=== PATIENT | male | born 1965 | race Caucasian/White ===

== ENCOUNTER 2017-01-14 10:28 | Inpatient (IN) ==
--- NOTE | 2017-01-13 21:19 | Discharge Summary ---
<Leyda Monsivais - Last Filed: 01/13/17 21:17> Date of Encounter: 01/13/17 - Discharge Diagnosis (1) Rotator cuff tear arthropathy of right shoulder Priority: Primary Status: Acute - Discharge Medications Home Medications: OxyCODONE Immed Rel [Roxicodone 5 MG] 5 - 10 mg PO Q6HR PRN #40 tablet 01/13/17 [Rx] Allergies/Adverse Reactions: Allergies tramadol Allergy (Verified 01/14/17 10:45) Itching Primary care physician: PCP NO - Patient Status Disposition: Home, Self-Care Condition: Good - Discharge Instructions Follow Up With: Leyda Monsivais, PAC [Physician Channel Process Supervisor] - 01/25/17 10:00 am NO,PCP [Primary Care Provider] - Additional Instructions: Discharge Instructions: Total Shoulder Please call [facility] ([phone]), your Primary Care Physician, or report to the Emergency Room if you have any of the following symptoms: Nausea, vomiting, fever greater that 101.5, swelling, chest pain, shortness of breath, increased pain/redness/drainage/odor for your incision site, numbness/ tingling, or any other concerning symptoms. ACTIVITY: Always keep your arm in the sling. Do not raise your arm away from your body. Do not use your arm to help with getting in or out of bed. No weight bearing permitted. Only perform those exercises given to you by your therapist. MEDICATIONS: Upon discharge resume your home medications. Take all the medications as prescribed. Take a stool softener if taking narcotic pain medications. Stool softeners are only effective if you drink enough fluids. Drink 6-8 glass of water or fluids a day, unless this is not allowed for another health problem. Despite using stool softeners, if you haven't had a bowel movement in 3 days, please switch to a gentle laxative. Gentle laxatives are sold over the counter. You should have a bowel movement within 24 hours, if not call the office. You will be discharged from the hospital with a prescription for pain medication. You are encouraged to decrease the use of narcotic pain medication as tolerated. Should you require a refill, please call the office. [facility] prescribes narcotic pain medication for only 4-6 weeks after surgery. If you require pain medication beyond this time period, you may be referred to your Primary Care Physician or to the Pain Clinic for further evaluation. Plan ahead for refills on pain medication as many narcotics either need to be picked up at the office or mailed. It is best to call 48-72 hours in advance of needing a prescription refill so you don't run out of medication. To help control the post-operative pain, you may take NSAIDs (Aleve,Advil, Motrin, Ibuprofen, Naprosyn) or Tylenol as prescribed on the bottle in addition to the pain medication. WOUND CARE: Leave the dressing on for 7-10 days. You may change the dressing if it becomes saturated greater than 50%. Do not get the dressing wet at anytime. Wash your hands with antibacterial soap, rinse and dry prior to any wound care. If you have jai the visiting nurse or rehab facility can remove the stapes 10-14 days after surgery and place steri-strips across the wound. Leave the steri-strips in place until they fall off on their own. You may let water from the shower run on top of the steri-strips. If you do not have a visiting nurse or rehab facility, you will need to return to the office at 10-14 days for the jai to be removed. If you have itching or redness around the dressing call the office. FOLLOW-UP: Please follow up with your surgeon in the orthopedic clinic, as scheduled - Hospital Course Hospital course: Mr. Mack is a 51 year old male - Time Spent with Patient Total time spent providing and/or coordinating discharge services: <Rakesh Hardy - Last Filed: 01/14/17 17:42> Date of Encounter: 01/14/17 Time of Encounter: 17:41 - Discharge Diagnosis (1) Tobacco abuse Priority: Secondary Status: Chronic (2) Rotator cuff tear arthropathy of right shoulder Priority: Primary Status: Acute Primary care physician: PCP NO - Patient Status Functional capacity at discharge: independent ambulation Overall status at discharge: patient is progressing back to baseline - Hospital Course Hospital course: Mr. Mack is a 51 year old male The patient had an uneventful postoperative course. They received antibiotics and physical therapy and were discharged in stable condition. There will follow -up in the office in 2 weeks. - Time Spent with Patient Total time spent providing and/or coordinating discharge services:
[2017-01-14] MEDS ORDERED: Lidocaine -MPF 1% 2 ML VIAL ID ONE (10:45)
[2017-01-14] MEDS ORDERED: Ringers Solution, Lactated 1,000 ML IVC SCH ×2 (10:45→14:49)
[2017-01-14] MEDS ORDERED: CeFAZolin Pre 2,000 MG/100 ML 2,000 MG/100 ML BAG IVPB ONE (10:45)
[2017-01-14] MEDS ORDERED: Famotidine 20 MG/2 ML VIAL IVP ONE (10:46)
[2017-01-14] MEDS ORDERED: Albuterol 2.5 MG/3 ML NEBULIZER IH ONE (10:52)
[2017-01-14] MEDS ORDERED: Albuterol 2.5 MG/3 ML NEBULIZER ONE (10:53)
[2017-01-14] MEDS ORDERED: Gabapentin 300 MG CAPSULE PO ONE (10:54)
--- NOTE | 2017-01-14 11:15 | Anesthesia Evaluation PreOp ---
Date of Encounter: 01/14/17 Time of Encounter: 11:10 - Past History Planned Operation: Rt Total Shoulder Replacement Cardiac History: Denies any Significant Hx Pulmonary History: Smoker [employer] History: Denies Any Significant HX Other Medical History: Denies Any Significant HX Anesthesia History: No Prior Anesthetic Complications Alcohol Use: none Drug use: none Medications and Allergies OxyCODONE Immed Rel [Roxicodone 5 MG] 5 - 10 mg PO Q6HR PRN #40 tablet 01/13/17 [Rx] Allergies tramadol Allergy (Verified 01/14/17 10:45) Itching - Meds/Allergy Pre-op Review Medications Reviewed: Yes Allergies Reviewed: Yes Beta Blockers on Current Med List: No Anesthesia Exam O2 Sat Height 1.83 m Height 1.83 m Weight 88.904 kg Weight 88.904 kg O2 Sat by Pulse Oximetry 99 O2 Sat by Pulse Oximetry 99 Vital Signs Temp Pulse Resp BP Pulse Ox 97.8 F 77 18 123/80 99 01/14/17 11:04 01/14/17 11:04 01/14/17 11:04 01/14/17 11:04 01/14/17 11:04 Height: 6'0 Weight: 196 lbs NPO (# of Hours): MN Pain Scale: 0 - HEENT Pupil (Motor): Pupils equal, EOMI Mallampati: II Denture Type: Upper: Complete Oral Opening: Greater than 3 - [employer]ED [employer] LOC: Oriented, Confused [employer]ED [employer] Sensory: Normal: RUE, LUE, RLE, LLE, Face - Cardiac Rhythm: Regular Murmur: None JVD: No Carotid Bruit: No - Pulmonary Breath Sounds: bilateral Clear Respiratory Effort: Symmetrical Anesthesia Assess/Plan ASA Score: 2 Modified Allie Scale for Level of Consciousness: Cooperative, oriented, and tranquil Anesthetic Plan: General, Regional Monitoring Plan: Standard Monitors Recovery Plan: PACU (Discussed GA and RA, agrees to proceed)
--- NOTE | 2017-01-14 11:23 | History & Physical Report ---
Date of Encounter: 01/14/17 Time of Encounter: 11:23 24 Hour HP Update - Instructions Instructions: If the History and Physical is less than 30 days old and was completed prior to A.M. admission and or procedure and has NOT been updated on calendar day of procedure please complete this update prior to performing procedure. - Update Patient reports changes in Medical Condition: No Changes in examination, assessment, or condition: No Changes in Medication: No Preop tests/diagnostics Reviewed: Yes Surgery Remains Indicated: Yes Consent for Planned Operative Procedure(s) Verified: Yes - Pre-Operative Checklist Preoperative Checklist Indicated: No Prophylactic Antibiotic Ordered: Yes Is VTE Prophylaxis Indicated?: Yes
[2017-01-14] MEDS ORDERED: Dexamethasone 4 MG/ML VIAL ONE (11:48)
[2017-01-14] MEDS ORDERED: *HR* FentaNYL (PF) 100 MCG/2 ML VIAL ONE (11:48)
[2017-01-14] MEDS ORDERED: *HR* Midazolam HCl 2 MG/2 ML VIAL ONE (11:48)
[2017-01-14] MEDS ORDERED: Ondansetron 4 MG/2 ML VIAL ONE (11:48)
[2017-01-14] MEDS ORDERED: *HR* Propofol 200 MG/20 ML VIAL IVP ONE (11:48)
[2017-01-14] MEDS ORDERED: Lidocaine -MPF 2% 2 ML VIAL ONE (11:49)
[2017-01-14] MEDS ORDERED: Tetracaine/PF 20 MG/2 ML AMPUL ONE (12:17)
[2017-01-14] MEDS ORDERED: ROPIVACAINE HCL/PF 0.5% 30 ML VIAL ONE (12:17)
[2017-01-14] MEDS ORDERED: Bupivacaine/Clonidine Syringe 1 EACH SYRINGE ONE (12:18)
[2017-01-14] MEDS ORDERED: *HR* Meperidine 25 MG/ML SYRINGE IVP PRN (12:29)
[2017-01-14] MEDS ORDERED: Ondansetron 4 MG/2 ML VIAL IVP PRN ×2 (12:29→14:49)
[2017-01-14] MEDS ORDERED: Naloxone 0.4 MG/ML INJ IVP PRN ×2 (12:29→14:49)
--- NOTE | 2017-01-14 12:33 | Anesthesia Procedures ---
Date of Encounter: 01/14/17 Time of Encounter: 12:20 Procedures: Anesthesia - Nerve Block Procedure Date: 01/14/17 Time: 12:20 Allergies/Adv Reactions: Allergies Allergy/AdvReac Type Severity Reaction Status Date / Time tramadol Allergy Itching Verified 01/14/17 10:45 Pre-op Diagnosis: Right Rotator Cuff Arthropathy Surgical Procedure: Right Reverse Total Shoulder Replacement Checklist: Correct Patient Identifier, Correct procedure, History checked Correct side: Right Blood Thinner: No Monitor Applied: EKG, BP, Pulse Oximetry Supplemental Oxygen via Nasal Cannula (L/min): 2 Sedation: Versed (mg): 2 Sedation: Fentanyl (mcg): 100 Indication: Post Op Analgesia Pre-op Neuro Deficits: No Block Type: Supraclavicular, Other (SCP, ICB) Catheter placed: No Sterile Technique: Yes Ultrasound used: Yes Anatomy identified: Yes Visual spread of Local: Yes Blood on Needle Aspiration: No Smooth Injection of Local: Yes Pain with Injection of Local: No Prep: Chlorhexadine Needle: 22 x 50 mm Stimuplex Local: 0.25% Bupivicaine w/Clonidine 20 mcg/cc (5ml each SCP, ICB), Tetracaine ( 2mL), Ropivacaine (0.5% 30mL Supra) Volume (cc): 40 Number of Attempts: 1 Complications: None/effective block Vitals: VSS throughout. See nursing documentation. Comments: Verbal order Dr Hardy for post op pain management. Patient tolerated procedure well.
--- NOTE | 2017-01-14 13:33 | Orthopedic Operative Note ---
Date of procedure: 01/14/17 Pre-op diagnosis: Right shoulder cuff tear arthropathy Post-op diagnosis: same Procedure: Procedure: Right Total Shoulder Replacment Reverse, Estimated blood loss: 100 cc Hardware: Metal and polyethylene replacement: Arthrex large glenoid baseplate, 2 4.5 screws. 1 6.5 screw, 42+4 glenosphere, 10 humeral stem, poly insert 3 and 6 metal Exam Under anesthesia: Full motion and no instability Procedural Notes: Irreparable tear supraspinatus tendon Operative procedure: The patient was brought to the operating room and placed on the operating room table. After general anesthesia was administered the operative shoulder was examined. Findings were noted. The patient was placed in the modified beachchair position. All pressure points were padded appropriately. And the head was stabilized in the neutral position. The operative extremity was prepped and draped in the sterile surgical fashion. The patient received IV antibiotics prior to skin incision. A standard deltopectoral approach was made to the operative shoulder. Incision was made to the skin and subcutaneous tissue,hemo stasis was obtained with Bovie cautery. Using careful blunt dissection the cephalic vein was identified and mobilized medially. The deltopectoral interval was developed and the clavipectoral fascia was incised. The subscap was released off the lesser tuberosity and tagged with #2 FiberWire suture it was irreparable. The humerus was dislocated patient noted to have irreparable tear supraspinatus tendon, and the humeral cut was made along the anatomic neck. Anterior and posterior Bankart retractors were placed to expose the glenoid. The glenoid guide was seated and the centering hole was made. It was reamed with the appropriate reamer. The large baseplate was seated and secured with (2) 4.5 screws and one 6.5 screw. The baseplate was irrigated and dried and the 42+4 Glenosphere was seated and secured with the Mariano taper. The Mariano taper was tested and found to be secure the humerus was redislocated and prepared with the diaphyseal reamers, followed by a broaching process up to the appropriate size 10 in the patient's anatomic version. The metaphyseal reamer was then utilized. Trial reduction found the shoulder to be relocatable. Trial components were removed. The appropriate 10 stem was impacted in place in the patient's anatomic version. Trial reduction found the shoulder to be relocatable and stable with the 6 metal 3 Neida Trial component was removed and the real 6 metal 3 Neida was seated and secured the shoulder was reduced. The shoulder had excellent motion and excellent stability and no evidence of dislocation. The deep tissue was irrigated with pulse irrigation. The deltopectoral interval was closed with a running #1 PDS suture, subcutaneous tissue was irrigated and closed with 0 PDS suture, the skin was closed with Dermabond. The patient was placed in a sterile dressing, abduction brace and extubated. The patient was then transferred to the recovery room in stable condition. Anesthesia: RACHEL Surgeon: Rakesh Hardy Hand Picker: Leyda Monsivais Condition: stable Disposition: PACU
[2017-01-14] MEDS: *HR* HYDROmorphone (PF) 1 MG/ML SYRINGE IVP PRN ×2 (13:55→14:04)
[2017-01-14 14:17] LABS: Hematocrit 42.2 % (37.5-50.1); Hemoglobin 14.2 g/dL (12.9-16.9)
--- NOTE | 2017-01-14 14:19 | Anesthesia Evaluation Post Op ---
Date of Encounter: 01/14/17 Time of Encounter: 14:25 - Vital Signs Vital Signs: Vital Signs/O2 Sat/Glucose, Most Current Temp Pulse Resp BP Pulse Ox 01/14/17 14:07 76 16 120/80 95 01/14/17 13:57 77 22 133/97 97 01/14/17 13:47 98 F 81 22 126/90 99 01/14/17 12:39 81 12 122/75 95 01/14/17 12:17 78 16 126/83 98 01/14/17 11:04 97.8 F 77 18 123/80 99 - Lungs Lungs: Clear Ascult./Percussion - Airway Airway: Non-obstructed - Cardiovascular Regular Rate - Mental Status Mental Status: Alert & Oriented, Answers Appropriately - Pain Pain Scale: 4 - Nausea Vomiting Nausea Vomiting: Not Present - Hydration Hydration: Ice chips - Discharge PostOp Status: Transfer Patient to floor
[2017-01-14] MEDS ORDERED: Sennosides 8.6 MG TABLET PO PRN (14:49)
[2017-01-14] MEDS ORDERED: *HR* HYDROmorphone (PF) 1 MG/ML SYRINGE IVP PRN (14:49)
[2017-01-14] MEDS ORDERED: MOM Conc 10 ML UD.LIQ PO PRN (14:49)
[2017-01-14] MEDS ORDERED: *HR* OxyCODONE Immed Rel 5 MG TABLET PO PRN ×2 (14:49)
[2017-01-14] MEDS ORDERED: Temazepam 15 MG CAPSULE PO PRN (14:49)
[2017-01-14] MEDS ORDERED: *HR* Enoxaparin 30 MG/0.3 ML SYRINGE SQ SCH ×2 (15:40→18:00)
[2017-01-14] MEDS ORDERED: ceFAZolin 2,000 MG in D5% in Water 100 ML IVPB SCH (16:00)
[2017-01-14 16:17] VITALS: BP 123/79
== END 2017-01-14 16:58 | disposition home or self-care (01) | DRG 315 ==
LOC: SAMDAY 10:28 → 3NENU 15:13
PROVIDERS: ADMIT Orthopaedic Surgery; ATTEND Orthopaedic Surgery